=== PATIENT | female | born 1955 | race Caucasian/White ===

== ENCOUNTER 2022-02-18 17:07 | Observation (INO) ==
--- NOTE | 2022-02-18 17:29 | ED Triage Note ---
Date of Service February 18, 2022 History of Present Illness This patient was briefly evaluated while in triage. An abbreviated physical exam was performed. This patient is a 66-year-old Female with past medical history of GERD who presents to the ED for evaluation of several weeks of feeling tired, intermit tenly dizzy and lightheaded. She endorses multiple days of black stool, 3 days ago she had explosive vomiting of black liquid. Had an EGD 2 weeks ago and was told there was an infection. Had a blood transfusion several years ago due to low hemoglobin, was given iron. Physical Exam CONSTITUTIONAL: in no acute distress CARDIAC: normal rate and regular rhythm RESPIRATORY: lungs clear ABDOMEN: no focal tenderness Initial orders for labs and / or imaging were placed and patient was placed in the waiting area until a bed is available. Please see further documentation for the full ED course.
[2022-02-18] MEDS ORDERED: SODIUM CHLORIDE 0.9% 500 ML IV STA (17:31)
--- NOTE | 2022-02-18 17:40 | Emergency Department Note ---
Impression & Plan Anemia ADMIT ED Provider Note HPI: The patient is a 66-year-old female who presents the emergency department with multiple issues. Patient states over the past several weeks she has felt fairly constant dizziness. Patient states that she is also had some nausea, patient states that 2 days ago she had an episode of dark-colored emesis, states she also had a very dark stool. Patient states that this seemed to have resolved for the past 2 days but she did continue to feel the sensation of constant dizziness. Patient does tell me that she had an EGD performed about 3 weeks ago for an esophageal dilation, at that time she was started on antibiotic therapy for H. pylori infection. Patient states she only did 3 days of this and then stopped because she felt as if it was upsetting her stomach. On arrival here to the ED the patient is in no acute distress, she does not have any focal deficits, she is otherwise hemodynamically stable. She states that her PCP had concern for possible GI bleeding and therefore she was sent to the ER for further evaluation. Of note, patient is visiting family from out of town as she is from [facility]. ROS: -GI: Nausea, dark emesis, melena -Neuro: Dizziness x2 to 3 weeks *10 point review systems was conducted and is otherwise negative unless stated above *Outpatient medications and allergy history reviewed PE: General: Alert, NAD HEENT: Normocephalic, atraumatic Eyes: Extraocular eye movement is intact, no scleral erythema Pulmonary: Clear to auscultation bilaterally, no wheezing Cardio: Regular rate and rhythm GI: Abdomen is soft, moderate tenderness over the epigastrium to palpation wit hout guarding or rigidity : No suprapubic tenderness MSK: No evidence of trauma or malformation of the extremities, no edema Skin: No evidence of rash Neuro: Alert, no focal deficits Psychiatric: Cooperative cardiac monitor technician: - An order was placed for continuous cardiac monitoring - Patient was noted to be in sinus rhythm with rate of 90 EKG: Rate: 83 Rhythm: Normal sinus rhythm Intervals: Within normal limits ST changes: No ST elevation Time: 1836 Medical Decision Making: Patient presented to the emergency department with a chief complaint of generalized weakness, states she has had some dizziness that is been ongoing for the past several weeks, patient states over the past 2 days she has felt dizzy and had an episode of emesis that was dark in color as well as an episode of dark-colored stools. Patient admits to being treated for recent H. pylori infection but did not finish her course of antibiotics. On arrival to the ED the patient is hemodynamically stable, IV was established, lab work obtained, patient was given IV fluid bolus. Lab work shows a hemoglobin of 9.5, patient does show me on her phone that she had lab work done on 01/31 that showed hemoglobin of 11.5, no evidence of acute kidney injury, EKG shows normal sinus rhythm without ischemic changes, CT imaging of the abdomen pelvis was obtained that shows evidence of hiatal hernia but no acute surgical pathology. CT imaging of the head does not show any evidence of any acute intracranial pathology. On my reassessment the patient is resting comfortably, discussed the change in her hemoglobin in association with her dizziness, I do feel like this represents symptomatic anemia in the setting of a likely GI bleed. She is hemodynamically stable, I did discuss the case with on-call gastroenterology, Dr. Patel, who was in agreement for consultation and the patient will be admitted to the inpatient hospitalist service. Patient was admitted to the [facility] hospitalist service in stable condition for further care and GI consultation. She was placed on Protonix drip prior to admission. She remained hemodynamically stable without hematemesis or melena while in the ED. Diagnosis: 1. Symptomatic anemia 2. Hematemesis and melena by history Disposition: Admission Solitario Eastman DO Emergency Medicine Past Med/Surg History Social History Smoking Status: Never smoker Feels Safe at Home: Yes Allergies Allergies Allergy/AdvReac Type Severity Reaction Status Date / Time amoxicillin Allergy ITCHY Verified 02/18/22 22:26 Home Meds Home Medications Medication Instructions Recorded Confirmed aspirin 81 mg tablet,delayed 81 mg PO DAILY 02/18/22 02/18/22 release atorvastatin 40 mg tablet 40 mg PO HS 02/18/22 02/18/22 cholecalciferol (vitamin D3) 125 125 mcg PO DAILY 02/18/22 02/18/22 mcg (5,000 unit) tablet (Vitamin D3) clonazepam 0.5 mg tablet 0.5 mg PO DAILY PRN Spasms 02/18/22 02/18/22 docusate sodium 100 mg capsule 100 mg PO DAILY 02/18/22 02/18/22 (Colace) ferrous sulfate 325 mg (65 mg 0 mg PO DAILY 02/18/22 02/18/22 iron) tablet (iron) gabapentin 300 mg capsule 300 mg PO HS 02/18/22 02/18/22 lactobacillus combination no.4 3 0 mmu cells PO DAILY 02/18/22 02/18/22 billion cell capsule (Probiotic) loratadine 10 mg tablet 10 mg PO DAILY 02/18/22 02/18/22 meloxicam 15 mg tablet 15 mg PO DAILY 02/18/22 02/18/22 omeprazole 40 mg capsule,delayed 40 mg PO BID 02/18/22 02/18/22 release ropinirole 1 mg tablet 2 mg PO HS 02/18/22 02/18/22 vit C 250 mg-vit E 90 mg-zinc 40 2 tab PO DAILY 02/18/22 02/18/22 mg-copper 1 [id number] capsule (PreserVision AREDS-2) Results & Data (ED) Vital Signs Vital Signs - 24 hr 02/18/22 17:20 02/18/22 18:20 02/18/22 18:20 Temperature 36.6 C Temperature Source Temporal Artery Scan Pulse Rate 99 H Pulse Rate [Finger] 84 Pulse Rhythm [Finger] Regular Pulse Strength [Finger] Normal Respiratory Rate 20 18 Respiratory Effort / Characteristics Non-Labored Non-Labored Respiratory Depth Normal Normal Respiratory Pattern Regular Blood Pressure 124/66 Blood Pressure [Right Arm] 129/77 Blood Pressure Mean 85 Blood Pressure Mean [Right Arm] 94 Blood Pressure Position [Right Arm] Lying Pulse Oximetry 97 97 99 Oxygen Delivery Method Room Air Room Air Room Air Sepsis Recent Fever Within 48 Hours No Sepsis New/Unexplained Change in Mental Status N/A Sepsis Action Taken by Nursing No Action Required 02/18/22 18:20 02/18/22 19:48 02/18/22 21:58 Temperature Temperature Source Pulse Rate 85 Pulse Rate [Finger] 89 91 H Pulse Rhythm [Finger] Pulse Strength [Finger] Respiratory Rate 99 H 21 16 Respiratory Effort / Characteristics Respiratory Depth Respiratory Pattern Blood Pressure Blood Pressure [Right Arm] 123/79 126/74 Blood Pressure Mean Blood Pressure Mean [Right Arm] 93 91 Blood Pressure Position [Right Arm] Pulse Oximetry 99 97 98 Oxygen Delivery Method Room Air Room Air Room Air Sepsis Recent Fever Within 48 Hours Sepsis New/Unexplained Change in Mental Status Sepsis Action Taken by Nursing 02/18/22 22:39 Temperature Temperature Source Pulse Rate Pulse Rate [Finger] Pulse Rhythm [Finger] Pulse Strength [Finger] Respiratory Rate Respiratory Effort / Characteristics Respiratory Depth Respiratory Pattern Blood Pressure Blood Pressure [Right Arm] 121/72 Blood Pressure Mean Blood Pressure Mean [Right Arm] 88 Blood Pressure Position [Right Arm] Pulse Oximetry Oxygen Delivery Method Sepsis Recent Fever Within 48 Hours Sepsis New/Unexplained Change in Mental Status Sepsis Action Taken by Nursing Laboratory Data Result diagrams: 02/18/22 18:19 02/18/22 18:19 Lab Results 02/18/22 02/18/22 02/18/22 Range/Units 18:19 18:19 18:19 WBC 4.95 (4.8-10.8) K/ul RBC 3.54 L (3.93-5.22) M/uL Hgb 9.5 L (12.0-16.0) g/dl Hct 31.8 L (34.1-44.9) % MCV 89.8 (80.0-100.0) fL MCH 26.8 (25.0-34.0) pg MCHC 29.9 L (32.0-36.0) g/dL RDW Std Deviation 48.8 H (36.4-46.3) fL RDW Coeff of Jaden 14.9 H (11.5-14.5) % Plt Count 200 (130-400) K/uL MPV 9.5 (9.4-12.3) fL Immature Gran % (Auto) 0.2 % Neut % (Auto) 52.6 % Lymph % (Auto) 33.7 % [place] % (Auto) 11.1 % Eos % (Auto) 2.0 % Baso % (Auto) 0.4 % Neut # (Auto) 2.60 (1.4-6.5) K/uL Lymph # (Auto) 1.67 (1.2-3.4) K/uL [place] # (Auto) 0.55 (0.24-0.82) K/uL Eos # (Auto) 0.10 (0-0.50) K/uL Baso # (Auto) 0.02 (0-0.2) K/uL Immature Gran # (Auto) 0.01 (0.00-0.02) K/uL PT (9.0-12.0) Seconds INR (0.9-1.1) APTT (21.0-31.0) Seconds PTT Ratio Sodium 141 (136-145) mmol/L Potassium 3.7 (3.5-5.1) mmol/L Chloride 107 (98-107) mmol/L Carbon Dioxide 26 (21-32) mmol/L Anion Gap 8 (3-11) BUN 21 (6-23) mg/dl Creatinine 0.61 (0.6-1.2) mg/dl Est Cr Clr Drug Dosing 97.4 ml/min Est GFR ( Amer) 109.5 ml/min Est GFR (Non-Af Amer) 94.5 ml/min BUN/Creatinine Ratio 34.4 H (10-20) Glucose 89 (70-99(Fasting)) mg/dl Calcium 9.2 (8.5-10.1) mg/dl Magnesium 2.0 (1.7-2.4) mg/dl Total Bilirubin 0.3 (0.2-1.0) mg/dl AST 24 (13-39) U/L ALT 25 (7-52) U/L Alkaline Phosphatase 134 H (34-104) U/L Troponin I High Sens 2.7 (0-14) pg/ml Total Protein 6.2 (6.0-8.3) gm/dl Albumin 3.8 (3.4-5.0) gm/dl Globulin 2.4 L (2.5-4.0) gm/dl Albumin/Globulin Ratio 1.6 (0.9-2) Lipase 41 (11-82) U/L SARS-CoV-2, RNA, NAAT (NEGATIVE) Blood Type A Positive Antibody Screen NEGATIVE 02/18/22 02/18/22 Range/Units 18:19 21:56 WBC (4.8-10.8) K/ul RBC (3.93-5.22) M/uL Hgb (12.0-16.0) g/dl Hct (34.1-44.9) % MCV (80.0-100.0) fL MCH (25.0-34.0) pg MCHC (32.0-36.0) g/dL RDW Std Deviation (36.4-46.3) fL RDW Coeff of Jaden (11.5-14.5) % Plt Count (130-400) K/uL MPV (9.4-12.3) fL Immature Gran % (Auto) % Neut % (Auto) % Lymph % (Auto) % [place] % (Auto) % Eos % (Auto) % Baso % (Auto) % Neut # (Auto) (1.4-6.5) K/uL Lymph # (Auto) (1.2-3.4) K/uL [place] # (Auto) (0.24-0.82) K/uL Eos # (Auto) (0-0.50) K/uL Baso # (Auto) (0-0.2) K/uL Immature Gran # (Auto) (0.00-0.02) K/uL PT 10.4 (9.0-12.0) Seconds INR 1.0 (0.9-1.1) APTT 24.9 (21.0-31.0) Seconds PTT Ratio 0.9 Sodium (136-145) mmol/L Potassium (3.5-5.1) mmol/L Chloride (98-107) mmol/L Carbon Dioxide (21-32) mmol/L Anion Gap (3-11) BUN (6-23) mg/dl Creatinine (0.6-1.2) mg/dl Est Cr Clr Drug Dosing ml/min Est GFR ( Amer) ml/min Est GFR (Non-Af Amer) ml/min BUN/Creatinine Ratio (10-20) Glucose (70-99(Fasting)) mg/dl Calcium (8.5-10.1) mg/dl Magnesium (1.7-2.4) mg/dl Total Bilirubin (0.2-1.0) mg/dl AST (13-39) U/L ALT (7-52) U/L Alkaline Phosphatase (34-104) U/L Troponin I High Sens (0-14) pg/ml Total Protein (6.0-8.3) gm/dl Albumin (3.4-5.0) gm/dl Globulin (2.5-4.0) gm/dl Albumin/Globulin Ratio (0.9-2) Lipase (11-82) U/L SARS-CoV-2, RNA, NAAT NEGATIVE (NEGATIVE) Blood Type Antibody Screen Administered Medications Pantoprazole Sodium 40 mg/ (Dextrose) 100 mls @ 20 mls/hr IV Q5H FERNANDO Stop: 03/20/22 21:44 Last Admin: 08/15/22 22:36 Dose: 8 mg/hr, 20 mls/hr Documented By: ASW Discontinued Medications Sodium Chloride (Nss) 500 mls @ 999 mls/hr IV .Q31M STA Stop: 02/18/22 18:01 Last Infusion: 02/18/22 18:40 Dose: 0 mls/hr Documented By: Admin: 02/18/22 18:13 Dose: 999 mls/hr Documented By: PRACHI Pantoprazole Sodium (Protonix Bolus/Drip) 0 mls @ 1 mls/hr IV ONE STA Stop: 02/18/22 21:21 Last Admin: 02/18/22 22:36 Dose: Not Given Documented By: PHAM Pantoprazole Sodium 80 mg/ (Dextrose) 120 mls @ 400 mls/hr IV NOW ONE Stop: 02/18/22 21:37 Last Infusion: 02/18/22 23:05 Dose: 0 mls/hr Documented By: Admin: 02/18/22 22:36 Dose: 400 mls/hr Documented By: PHAM Ioversol (Optiray 300 100ml) 87 ml IV ONCE ONE Stop: 02/18/22 20:07 Last Admin: 02/18/22 20:07 Dose: 87 ml Documented By: JENNIFER Imaging Data Radiologist's Impression: Chest X-Ray 02/18/22 17:31 XR chest 1V portable CLINICAL HISTORY: Atypical chest pain. COMPARISON STUDY: No previous studies for comparison. FINDINGS: Lung volumes are normal. Lungs are clear. There is no pneumothorax or pleural effusion. Mild cardiomegaly is noted. A moderate sized hiatal hernia is noted. There is no evidence for pulmonary edema. IMPRESSION: 1. No acute cardiopulmonary findings. 2. Moderate-sized hiatal hernia. ACT 112: Negative or not required by law. Electronically signed by: Nick Braun M.D. 02/18/2022 6:05 PM Abdomen/Pelvis CT 02/18/22 17:[address] WITH IV CONTRAST CT DOSE: 801.96 mGy.cm HISTORY: Nausea. Vomiting., dark stools TECHNIQUE: Multiaxial CT images of the abdomen and pelvis were performed following the use of intravenous contrast. A dose lowering technique was ut ilized adhering to the principles of ALARA. COMPARISON STUDY: None. FINDINGS: The lung bases are essentially clear. No pneumoperitoneum. No pneumato sis. Mild levoscoliosis and degenerative changes within the lumbar spine. No fractures identified. There is a large hiatus hernia containing the majority the stomach. Small fat-containing bilateral inguinal hernias are noted. Mild pelvic floor collapse. The bladder, uterus, bilateral adnexa are unremarkable. No pelvic free fluid. A few scattered hypodense lesions within the liver measuring up to 2 cm. These likely represent cysts. The main portal vein is patent. The spleen, adrenal glands, pancreas, and kidneys are unremarkable. No hydronephrosis. There appears to be a punctate stone within the gallbladder neck. This is best seen image 127. No gallbladder wall thickening. Normal caliber abdominal aorta. No retroperitoneal lymphadenopathy. Colonic diverticulosis. No evidence for acute diverticulitis. No bowel wall thickening or obstruction. Normal appendix. IMPRESSION: 1. No bowel wall thickening or obstruction. 2. Normal appendix. 3. Cholelithiasis. No gallbladder wall thickening. 4. Colonic diverticulosis. No evidence for acute diverticulitis. 5. Large hiatus hernia. 6. Additional findings as described above. ACT 112: Negative or not required by law. Electronically signed by: Steve Reed M.D. 02/18/2022 8:[address] 02/18/22 17:[address] DOSE: 537.48 mGy.cm HISTORY: Dizziness. TECHNIQUE: Multiaxial CT images of the head were performed without the use of intravenous contrast. Automated exposure control was utilized for this study. A dose lowering technique was utilized adhering to the principles of ALARA. Comparison: None. Findings: The paranasal sinuses and mastoid air cells are clear. The calvarium and skull base are intact. The ventricles and sulci are within normal limits. There is no mass, hematoma, midline shift, or acute infarct. Impression: No acute intracranial abnormality. ACT 112: Negative or not required by law. Electronically signed by: Steve Reed M.D. 02/18/2022 8:14 PM Discharge Plan Visit Data Chief Complaint: Dizziness Stated Complaint: REF BY , DIZZINESS, NAUSEA, VOMITING ED Provider: Solitario Eastman Discharge Problem: Anemia Patient Disposition: Admitted As Inpatient Forms Stand Alone Forms: [facility] Prescriptions Prescriptions: No Action atorvastatin 40 mg tablet 40 mg PO HS ropinirole 1 mg tablet 2 mg PO HS meloxicam 15 mg tablet 15 mg PO DAILY clonazepam 0.5 mg tablet 0.5 mg PO DAILY PRN (Reason: Spasms) omeprazole 40 mg capsule,delayed release(DR/EC) 40 mg PO BID aspirin [Aspir-Low] 81 mg Tablet,Delayed Release (Dr/Ec) 81 mg PO DAILY ferrous sulfate [iron] 325 mg (65 mg iron) Tablet 0 mg PO DAILY docusate sodium [Colace] 100 mg Capsule 100 mg PO DAILY gabapentin 300 mg capsule 300 mg PO HS loratadine 10 mg Tablet 10 mg PO DAILY cholecalciferol (vitamin D3) [Vitamin D3] 125 mcg (5,000 unit) Tablet 125 mcg PO DAILY Probiotic 3 billion cell Capsule 0 mmu cells PO DAILY Rx Instructions: administer with a meal PreserVision AREDS-2 250-90-40-1 mg Capsule 2 tab PO DAILY Referrals Referrals: PCP,NO [Primary Care Provider] -
--- NOTE | 2022-02-18 18:06 | XRay Report ---
XR chest 1V portable CLINICAL HISTORY: Atypical chest pain. COMPARISON STUDY: No previous studies for comparison. FINDINGS: Lung volumes are normal. Lungs are clear. There is no pneumothorax or pleural effusion. Mil d cardiomegaly is noted. A moderate sized hiatal hernia is noted. There is no evidence for pulmonary edema. IMPRESSION: 1. No acute cardiopulmonary findings. 2. Moderate-sized hiatal hernia. ACT 112: Negative or not required by law. Electronically signed by: Nick Braun M.D. 02/18/2022 6:05 PM
[2022-02-18 18:53] LABS: Partial Thromboplastin Ratio 0.9; Partial Thromboplastin Time 24.9 Seconds (21.0-31.0); Prothrombin Time 10.4 Seconds (9.0-12.0)
[2022-02-18 18:58] LABS: Basophils # (auto) 0.02 K/uL (0-0.2); Basophils % (auto) 0.4 %; Hematocrit (blood only) 31.8 % (34.1-44.9); Hemoglobin 9.5 g/dl (12.0-16.0); Immature Granulocytes # (auto) 0.01 K/uL (0.00-0.02); Immature Granulocytes % (auto) 0.2 %; Lymphocytes # (auto) 1.67 K/uL (1.2-3.4); Lymphocytes % (auto) 33.7 %; Mean Corpuscular Hemoglobin 26.8 pg (25.0-34.0); Mean Corpuscular Hgb Conc 29.9 g/dL (32.0-36.0); Mean Corpuscular Volume 89.8 fL (80.0-100.0); Mean Platelet Volume 9.5 fL (9.4-12.3); Monocytes # (auto) 0.55 K/uL (0.24-0.82); Monocytes % (auto) 11.1 %; Neutrophils % (auto) 52.6 %; Platelet Count 200 K/uL (130-400); RDW Coefficient of Variation 14.9 % (11.5-14.5); RDW Standard Deviation 48.8 fL (36.4-46.3); Red Blood Count 3.54 M/uL (3.93-5.22); White Blood Count 4.95 K/ul (4.8-10.8)
[2022-02-18 19:49] LABS: Albumin Globulin Ratio 1.6 (0.9-2); Albumin Level 3.8 gm/dl (3.4-5.0); BUN Creatinine Ratio 34.4 (10-20); Bilirubin,Total 0.3 mg/dl (0.2-1.0); Calcium 9.2 mg/dl (8.5-10.1); Creatinine Clr Calc Pharmacy 97.4 ml/min; Est GFR (African American) 109.5 ml/min; Est GFR (Non-African American) 94.5 ml/min; Globulin 2.4 gm/dl (2.5-4.0); Potassium 3.7 mmol/L (3.5-5.1); Total Protein 6.2 gm/dl (6.0-8.3)
[2022-02-18] MEDS ORDERED: OPTIRAY 300 100mL IV ONE (20:06)
[2022-02-18 20:08] LABS: Troponin I High Sensitivity 2.7 pg/ml (0-14)
--- NOTE | 2022-02-18 20:16 | CT Scan Report ---
HEAD CT NONCONTRAST CT DOSE: 537.48 mGy.cm HISTORY: Dizziness. TECHNIQUE: Multiaxial CT images of the head were performed without the use of intravenous contrast. A utomated exposure control was utilized for this study. A dose lowering technique was utilized adheri ng to the principles of ALARA. Comparison: None. Findings: The paranasal sinuses and mastoid air cells are clear. The calvarium and skull base are int act. The ventricles and sulci are within normal limits. There is no mass, hematoma, midline shift, or acute infarct. Impression: No acute intracranial abnormality. ACT 112: Negative or not required by law. Electronically signed by: Steve Reed M.D. 02/18/2022 8:14 PM
--- NOTE | 2022-02-18 20:23 | CT Scan Report ---
ABDOMEN AND PELVIS CT WITH IV CONTRAST CT DOSE: 801.96 mGy.cm HISTORY: Nausea. Vomiting., dark stools TECHNIQUE: Multiaxial CT images of the abdomen and pelvis were performed following the use of intrave nous contrast. A dose lowering technique was utilized adhering to the principles of ALARA. COMPARISON STUDY: None. FINDINGS: The lung bases are essentially clear. No pneumoperitoneum. No pneumatosis. Mild levoscolios is and degenerative changes within the lumbar spine. No fractures identified. There is a large hiatus hernia containing the majority the stomach. Small fat-containing bilateral inguinal hernias are note d. Mild pelvic floor collapse. The bladder, uterus, bilateral adnexa are unremarkable. No pelvic free fluid. A few scattered hypodense lesions within the liver measuring up to 2 cm. These likely represe nt cysts. The main portal vein is patent. The spleen, adrenal glands, pancreas, and kidneys are unrem arkable. No hydronephrosis. There appears to be a punctate stone within the gallbladder neck. This is best seen image 127. No gallbladder wall thickening. Normal caliber abdominal aorta. No retroperiton eal lymphadenopathy. Colonic diverticulosis. No evidence for acute diverticulitis. No bowel wall thic kening or obstruction. Normal appendix. IMPRESSION: 1. No bowel wall thickening or obstruction. 2. Normal appendix. 3. Cholelithiasis. No gallbladder wall thickening. 4. Colonic diverticulosis. No evidence for acute diverticulitis. 5. Large hiatus hernia. 6. Additional findings as described above. ACT 112: Negative or not required by law. Electronically signed by: Steve Reed M.D. 02/18/2022 8:20 PM
[2022-02-18] MEDS ORDERED: PANTOprazole 80 MG in DEXTROSE 5% 100 ML IV ONE (21:20)
[2022-02-18] MEDS ORDERED: PANTOPRAZOLE BOLUS/DRIP 1 EACH IV STA (21:20)
[2022-02-18] MEDS: PANTOprazole 40 MG in DEXTROSE 5% 100 ML IV SCH (22:36)
--- NOTE | 2022-02-18 22:48 | History & Physical Report ---
Date of Service February 18, 2022 Assessment & Plan (1) UGIB (upper gastrointestinal bleed): Plan: hx GERD/stomach ulcers as per patient Concurrent aspirin, Excedrin, intermittent ibuprofen intake for chronic osteoarthritis pain Considerations include NSAID gastritis, PUD Acute on chronic anemia secondary to above hyperlipidemia on statin Rx Medical therapy IV PPI Patient counseled regarding adverse effects of NSAIDs on gastric mucosa. GI consult Re: UGI B N.p.o. until patient seen by GI in a.m. in anticipation of procedure (ER provider already in touch with Dr. Patel.) Follow H&H, transfuse PRBC if hemoglobin less than 8 and or for symptomatic anemia (hx TIA) DVT prophylaxis. SCDs Re: GI bleed Full code Patient daughter requesting updates providers. Ms. Alice Garcia, contact #[phone]. Text document was generated using [employer] voice recognition software. It may contain grammatical or spelling errors. Kindly contact undersigned for clarification of any documentation item in question. History of Present Illness Chief Complaint: Melena Primary Care Provider: PCP : Dr. Deanne Nunn from [place], [place] GI specialist Dr. Betty Orona from [place], [place] History obtained from patient, family, and records. Medical history significant for TIA, hyperlipidemia, RLS, GERD, osteoarthritis/degenerative disc disease, chronic anemia (baseline hemoglobin of 11) Patient is a resident of [place], [place] who is currently in town visiting family. 1 month history of dizziness symptoms described as lightheadedness. Some nausea without abdominal pain complaints. 2 days ago, patient had coffee-ground emesis along with melena. No chest pain, no SOB, belly pain. No unusual weight loss. Patient admits to taking daily Excedrin intake for body aches and as needed ibuprofen. Last EGD was in December, by GI specialist from [place], [place]. Patient had scheduled stretching of her esophagus. She was told that she had small stomach ulcers and hiatal hernia as well. Amoxicillin course prescribed for a stomach bacterial infection. Medication later discontinued after an allergic reaction. Patient brought to ER by daughter for evaluation. IV PPI administered at the ER. Medical History as above Surgical History : Knee surgeries, shoulder surgery, BTL, carpal tunnel surgery, breast lumpectomy/biopsy Family History : Heart disease Personal/Social history : Non-smoker, no EtOH intake, retired medical technologist blood bank Allergies Allergy/AdvReac Type Severity Reaction Status Date / Time amoxicillin Allergy ITCHY Verified 02/18/22 22:26 Home Medications Medication Instructions Recorded Confirmed Type aspirin 81 mg tablet,delayed 81 mg PO DAILY 02/18/22 02/18/22 History release atorvastatin 40 mg tablet 40 mg PO HS 02/18/22 02/18/22 History cholecalciferol (vitamin D3) 125 125 mcg PO DAILY 02/18/22 02/18/22 History mcg (5,000 unit) tablet (Vitamin D3) clonazepam 0.5 mg tablet 0.5 mg PO DAILY PRN Spasms 02/18/22 02/18/22 History docusate sodium 100 mg capsule 100 mg PO DAILY 02/18/22 02/18/22 History (Colace) ferrous sulfate 325 mg (65 mg 0 mg PO DAILY 02/18/22 02/18/22 History iron) tablet (iron) gabapentin 300 mg capsule 300 mg PO HS 02/18/22 02/18/22 History lactobacillus combination no.4 3 0 mmu cells PO DAILY 02/18/22 02/18/22 History billion cell capsule (Probiotic) loratadine 10 mg tablet 10 mg PO DAILY 02/18/22 02/18/22 History meloxicam 15 mg tablet 15 mg PO DAILY 02/18/22 02/18/22 History omeprazole 40 mg capsule,delayed 40 mg PO BID 02/18/22 02/18/22 History release ropinirole 1 mg tablet 2 mg PO HS 02/18/22 02/18/22 History vit C 250 mg-vit E 90 mg-zinc 40 2 tab PO DAILY 02/18/22 02/18/22 History mg-copper 1 [id number] capsule (PreserVision AREDS-2) Past Med/Surg History Social History Smoking Status: Never smoker Hx Alcohol Use: No Hx Substance Use: No Preferred Language: Slovenian Communication Ability: Effective Child Protective Services Specialist Required: No Beliefs That Will Affect Care: None Current Living Situation: Spouse Feels Safe at Home: Yes Safety Concerns: Feels Safe At This Time Review of Systems Review of Systems: As per HPI, all other systems reviewed and negative Physical Exam Physical Exam: GENERAL: Comfortable, obese, pleasant, no respiratory distress SKIN: Pallor , warm HEENT: Pale palpebral conjunctivae, no ptosis, moist buccal mucosa NECK : Supple, short neck, no tenderness CHEST : CTA, no tenderness HEART : RRR, no obvious murmurs ABDOMEN: Some distention, nontender EXTREMITIES : Minimal LE swelling, no LE tenderness, no other conspicuous deformities noted NEUROLOGIC : Coherent, no facial asymmetry, no other gross focality Results & Data Results & [facility] ([facility] Vital Signs (Past 12 Hours) Vital Signs Temp Pulse Pulse Resp BP BP Pulse Ox 02/18/22 22:39 121/72 02/18/22 21:58 91 H 16 126/74 98 02/18/22 19:48 89 21 123/79 97 02/18/22 18:20 85 99 H 99 02/18/22 18:20 84 18 129/77 99 02/18/22 18:20 97 02/18/22 17:20 36.6 C 99 H 20 124/66 97 O2 Del Method 02/18/22 22:39 02/18/22 21:58 Room Air 02/18/22 19:48 Room Air 02/18/22 18:20 Room Air 02/18/22 18:20 Room Air 02/18/22 18:20 Room Air 02/18/22 17:20 Room Air Laboratory Results Laboratory Results WBC 4.95 K/ul (4.8-10.8) 02/18/22 18:19 RBC 3.54 M/uL (3.93-5.22) L 02/18/22 18:19 Hgb 9.5 g/dl (12.0-16.0) L 02/18/22 18:19 Hct 31.8 % (34.1-44.9) L 02/18/22 18:19 MCV 89.8 fL (80.0-100.0) 02/18/22 18:19 MCH 26.8 pg (25.0-34.0) 02/18/22 18:19 MCHC 29.9 g/dL (32.0-36.0) L 02/18/22 18:19 RDW Std Deviation 48.8 fL (36.4-46.3) H 02/18/22 18:19 RDW Coeff of Jaden 14.9 % (11.5-14.5) H 02/18/22 18:19 Plt Count 200 K/uL (130-400) 02/18/22 18:19 MPV 9.5 fL (9.4-12.3) 02/18/22 18:19 Immature Gran % (Auto) 0.2 % 02/18/22 18:19 Neut % (Auto) 52.6 % 02/18/22 18:19 Lymph % (Auto) 33.7 % 02/18/22 18:19 [place] % (Auto) 11.1 % 02/18/22 18:19 Eos % (Auto) 2.0 % 02/18/22 18:19 Baso % (Auto) 0.4 % 02/18/22 18:19 Neut # (Auto) 2.60 K/uL (1.4-6.5) 02/18/22 18:19 Lymph # (Auto) 1.67 K/uL (1.2-3.4) 02/18/22 18:19 [place] # (Auto) 0.55 K/uL (0.24-0.82) 02/18/22 18:19 Eos # (Auto) 0.10 K/uL (0-0.50) 02/18/22 18:19 Baso # (Auto) 0.02 K/uL (0-0.2) 02/18/22 18:19 Immature Gran # (Auto) 0.01 K/uL (0.00-0.02) 02/18/22 18:19 PT 10.4 Seconds (9.0-12.0) 02/18/22 18:19 INR 1.0 (0.9-1.1) 02/18/22 18:19 APTT 24.9 Seconds (21.0-31.0) 02/18/22 18:19 PTT Ratio 0.9 02/18/22 18:19 Sodium 141 mmol/L (136-145) 02/18/22 18:19 Potassium 3.7 mmol/L (3.5-5.1) 02/18/22 18:19 Chloride 107 mmol/L (98-107) 02/18/22 18:19 Carbon Dioxide 26 mmol/L (21-32) 02/18/22 18:19 Anion Gap 8 (3-11) 02/18/22 18:19 BUN 21 mg/dl (6-23) 02/18/22 18:19 Creatinine 0.61 mg/dl (0.6-1.2) 02/18/22 18:19 Est Cr Clr Drug Dosing 97.4 ml/min 02/18/22 18:19 Est GFR ( Amer) 109.5 ml/min 02/18/22 18:19 Est GFR (Non-Af Amer) 94.5 ml/min 02/18/22 18:19 BUN/Creatinine Ratio 34.4 (10-20) H 02/18/22 18:19 Glucose 89 mg/dl (70-99(Fasting)) 02/18/22 18:19 Calcium 9.2 mg/dl (8.5-10.1) 02/18/22 18:19 Magnesium 2.0 mg/dl (1.7-2.4) 02/18/22 18:19 Total Bilirubin 0.3 mg/dl (0.2-1.0) 02/18/22 18:19 AST 24 U/L (13-39) 02/18/22 18:19 ALT 25 U/L (7-52) 02/18/22 18:19 Alkaline Phosphatase 134 U/L (34-104) H 02/18/22 18:19 Troponin I High Sens 2.7 pg/ml (0-14) 02/18/22 18:19 Total Protein 6.2 gm/dl (6.0-8.3) 02/18/22 18:19 Albumin 3.8 gm/dl (3.4-5.0) 02/18/22 18:19 Globulin 2.4 gm/dl (2.5-4.0) L 02/18/22 18:19 Albumin/Globulin Ratio 1.6 (0.9-2) 02/18/22 18:19 Lipase 41 U/L (11-82) 02/18/22 18:19 SARS-CoV-2, RNA, NAAT NEGATIVE (NEGATIVE) 02/18/22 21:56 Blood Type A Positive 02/18/22 18:19 Antibody Screen NEGATIVE 02/18/22 18:19 Impressions Chest X-Ray 02/18/22 17:31 XR chest 1V portable CLINICAL HISTORY: Atypical chest pain. COMPARISON STUDY: No previous studies for comparison. FINDINGS: Lung volumes are normal. Lungs are clear. There is no pneumothorax or pleural effusion. Mild cardiomegaly is noted. A moderate sized hiatal hernia is noted. There is no evidence for pulmonary edema. IMPRESSION: 1. No acute cardiopulmonary findings. 2. Moderate-sized hiatal hernia. ACT 112: Negative or not required by law. Electronically signed by: Nick Braun M.D. 02/18/2022 6:05 PM Abdomen/Pelvis CT 02/18/22 17:[address] WITH IV CONTRAST CT DOSE: 801.96 mGy.cm HISTORY: Nausea. Vomiting., dark stools TECHNIQUE: Multiaxial CT images of the abdomen and pelvis were performed following the use of intravenous contrast. A dose lowering technique was utilized adhering to the principles of ALARA. COMPARISON STUDY: None. FINDINGS: The lung bases are essentially clear. No pneumoperitoneum. No pneumatosis. Mild levoscoliosis and degenerative changes within the lumbar spine. No fractures identified. There is a large hiatus hernia containing the majority the stomach. Small fat-containing bilateral inguinal hernias are noted. Mild pelvic floor collapse. The bladder, uterus, bilateral adnexa are unremarkable. No pelvic free fluid. A few scattered hypodense lesions within the liver measuring up to 2 cm. These likely represent cysts. The main portal vein is patent. The spleen, adrenal glands, pancreas, and kidneys are unremarkable. No hydronephrosis. There appears to be a punctate stone within the gallbladder neck. This is best seen image 127. No gallbladder wall thickening. Normal caliber abdominal aorta. No retroperitoneal lymphadenopathy. Colonic diverticulosis. No evidence for acute diverticulitis. No bowel wall thickening or obstruction. Normal appendix. IMPRESSION: 1. No bowel wall thickening or obstruction. 2. Normal appendix. 3. Cholelithiasis. No gallbladder wall thickening. 4. Colonic diverticulosis. No evidence for acute diverticulitis. 5. Large hiatus hernia. 6. Additional findings as described above. ACT 112: Negative or not required by law. Electronically signed by: Steve Reed M.D. 02/18/2022 8:[address] 02/18/22 17:[address] DOSE: 537.48 mGy.cm HISTORY: Dizziness. TECHNIQUE: Multiaxial CT images of the head were performed without the use of intravenous contrast. Automated exposure control was utilized for this study. A dose lowering technique was utilized adhering to the principles of ALARA. Comparison: None. Findings: The paranasal sinuses and mastoid air cells are clear. The calvarium and skull base are intact. The ventricles and sulci are within normal limits. There is no mass, hematoma, midline shift, or acute infarct. Impression: No acute intracranial abnormality. ACT 112: Negative or not required by law. Electronically signed by: Steve Reed M.D. 02/18/2022 8:14 PM Diagnostic Findings EKG as per my interpretation :Rate 85, NSR, normal axis, incomplete RBBB, T wave flattening inferior and septal leads
[2022-02-18] MEDS ORDERED: rOPINIRole HCL 2 MG TABLET PO STA (22:54)
[2022-02-18] MEDS ORDERED: GABAPENTIN 300 MG CAP PO STA (22:54)
[2022-02-18] MEDS ORDERED: traMADol HCL 50 MG TABLET PO PRN (23:32)
[2022-02-18] MEDS ORDERED: ACETAMINOPHEN 325 MG TAB PO PRN (23:32)
[2022-02-18] MEDS ORDERED: PROMETHAZINE HCL 12.5 MG in SODIUM CHLORIDE 0.9% 50 ML IV PRN (23:32)
[2022-02-18 23:56] LABS: Hematocrit (blood only) 32.5 % (34.1-44.9); Hemoglobin 9.7 g/dl (12.0-16.0)
[2022-02-19] MEDS ORDERED: D5W AND LACTATED RINGERS 1,000 ML IV SCH
[2022-02-19] MEDS: PANTOprazole 40 MG in DEXTROSE 5% 100 ML IV SCH ×2 (03:12→11:34)
[2022-02-19 06:11] LABS: Basophils # (auto) 0.03 K/uL (0-0.2); Basophils % (auto) 0.7 %; Eosinophils # (auto) 0.13 K/uL (0-0.50); Eosinophils % (auto) 2.9 %; Hematocrit (blood only) 29.1 % (34.1-44.9); Hemoglobin 8.9 g/dl (12.0-16.0); Immature Granulocytes # (auto) 0.01 K/uL (0.00-0.02); Immature Granulocytes % (auto) 0.2 %; Lymphocytes # (auto) 1.44 K/uL (1.2-3.4); Lymphocytes % (auto) 31.9 %; Mean Corpuscular Hemoglobin 27.2 pg (25.0-34.0); Mean Corpuscular Hgb Conc 30.6 g/dL (32.0-36.0); Mean Platelet Volume 9.4 fL (9.4-12.3); Monocytes # (auto) 0.48 K/uL (0.24-0.82); Monocytes % (auto) 10.6 %; Neutrophils # (auto) 2.43 K/uL (1.4-6.5); Neutrophils % (auto) 53.7 %; Platelet Count 183 K/uL (130-400); RDW Coefficient of Variation 15.3 % (11.5-14.5); RDW Standard Deviation 49.1 fL (36.4-46.3); Red Blood Count 3.27 M/uL (3.93-5.22); White Blood Count 4.52 K/ul (4.8-10.8)
[2022-02-19 06:43] LABS: BUN Creatinine Ratio 25.4 (10-20); Creatinine Clr Calc Pharmacy 88.6 ml/min; Est GFR (African American) 106.2 ml/min; Est GFR (Non-African American) 91.6 ml/min; Potassium 4.1 mmol/L (3.5-5.1)
[2022-02-19] MEDS ORDERED: LORATADINE 10 MG TAB PO SCH (09:00)
[2022-02-19] MEDS ORDERED: ADVANCED PROBIOTIC 1250 MG CAPSULE PO SCH (09:00)
--- NOTE | 2022-02-19 09:21 | Anesthesiology Consultation ---
Date of Service February 19, 2022 Assessment & Plan (1) Encounter for pre-operative examination: Chart Review Chart Review: Acceptable Risk for Surgery, Patient NOT seen in Pre Admission Testing and entry level programmer initiated Consults Requested none Proposed Anesthesia Anesthesia Type: MAC Risk / Benefits Reviewed With: PT / POA / Parent / Guardian, Accepts Plan and Informed Consent Obtained History Surgery Operation Date: 02/19/22 17:15 Proposed Procedures p Esophagogastroduodenoscopy Dr Patel - Jorge Martinez Case, DO Height/Weight Height: 5 ft 4 in Weight: 87.9 kg Allergies Allergy/AdvReac Type Severity Reaction Status Date / Time amoxicillin Allergy ITCHY Verified 02/18/22 22:26 Medications Home Medications Medication Instructions Recorded Confirmed Last Taken aspirin 81 mg tablet,delayed 81 mg PO DAILY 02/18/22 02/18/22 Unknown release atorvastatin 40 mg tablet 40 mg PO HS 02/18/22 02/18/22 Unknown cholecalciferol (vitamin D3) 125 125 mcg PO DAILY 02/18/22 02/18/22 Unknown mcg (5,000 unit) tablet (Vitamin D3) clonazepam 0.5 mg tablet 0.5 mg PO DAILY PRN Spasms 02/18/22 02/18/22 Unknown docusate sodium 100 mg capsule 100 mg PO DAILY 02/18/22 02/18/22 Unknown (Colace) ferrous sulfate 325 mg (65 mg 0 mg PO DAILY 02/18/22 02/18/22 Unknown iron) tablet (iron) gabapentin 300 mg capsule 300 mg PO HS 02/18/22 02/18/22 Unknown lactobacillus combination no.4 3 0 mmu cells PO DAILY 02/18/22 02/18/22 Unknown billion cell capsule (Probiotic) loratadine 10 mg tablet 10 mg PO DAILY 02/18/22 02/18/22 Unknown meloxicam 15 mg tablet 15 mg PO DAILY 02/18/22 02/18/22 Unknown omeprazole 40 mg capsule,delayed 40 mg PO BID 02/18/22 02/18/22 Unknown release ropinirole 1 mg tablet 2 mg PO HS 02/18/22 02/18/22 Unknown vit C 250 mg-vit E 90 mg-zinc 40 2 tab PO DAILY 02/18/22 02/18/22 Unknown mg-copper 1 [id number] capsule (PreserVision AREDS-2) Active Medications Generic Name Dose Route Start Last Admin Trade Name Ubaldo PRN Reason Stop Dose Admin Pantoprazole Sodium 40 mg/ 100 mls @ 20 mls/hr 02/18/22 21:45 02/19/22 08:49 Dextrose IV 03/20/22 21:44 Infused Q5H FERNANDO Infusion 8 MG/HR Dextrose/Lactated Ringer's 1,000 mls @ 40 mls/hr 02/19/22 00:00 02/19/22 01:12 D5w And Lactated Ringers IV 03/21/22 00:00 40 mls/hr .Q24H FERNANDO Administration Past Medical History Medical History (Updated 02/19/22 @ 09:23 by Carlos Panda MD) Encounter for pre-operative examination Social History Smoking Status: Never smoker Hx Alcohol Use: No Hx Substance Use: No Physical Exam Vital Signs Last Vital Signs Temp 36.9 C 02/18/22 23:41 Pulse 80 02/19/22 08:02 Resp 16 02/19/22 08:02 BP 115/71 02/19/22 08:02 Pulse Ox 97 02/19/22 08:02 O2 Del Method 02/19/22 08:02 Testing Laboratory Results 02/19/22 05:28 02/19/22 05:28 PT 10.4 Seconds (9.0-12.0) 02/18/22 18:19 INR 1.0 (0.9-1.1) 02/18/22 18:19 APTT 24.9 Seconds (21.0-31.0) 02/18/22 18:19 Blood Type A Positive 02/18/22 18:19 Antibody Screen NEGATIVE 02/18/22 18:19 Electrocardiogram Date: 02/18/22 Normal sinus rhythm Possible Inferior infarct , age undetermined Cannot rule out Anterior infarct , age undetermined Abnormal ECG No previous ECGs available Chest X-Ray Date: 02/18/22 CLINICAL HISTORY: Atypical chest pain. COMPARISON STUDY: No previous studies for comparison. FINDINGS: Lung volumes are normal. Lungs are clear. There is no pneumothorax or pleural effusion. Mild cardiomegaly is noted. A moderate sized hiatal hernia is noted. There is no evidence for pulmonary edema. IMPRESSION: 1. No acute cardiopulmonary findings. 2. Moderate-sized hiatal hernia.
[2022-02-19] MEDS ORDERED: LIDOCAINE 2% MPF LOCAL 5 ML VIAL INFIL ONE (10:05)
[2022-02-19] MEDS ORDERED: PROPOFOL IV EMULSION 10 MG/ML 20 ML VIAL IV ONE (10:05)
--- NOTE | 2022-02-19 10:14 | Gastrointestinal Consultation ---
Date of Consultation February 19, 2022 Assessment & Plan (1) UGIB (upper gastrointestinal bleed): (2) Anemia: Plan -Keep NPO & proceed with EGD today -Continue IV PPI at present; will make further recommendations pending results of EGD -Continue to monitor H/H Supervising Physician Co-Signing Physician Notes Agree with SAROJ Kuo as above Gen: A+OX3, Cooperative, NAD Chest: CTA B/L, -W/R/R CVS: RRR Abd: Soft, NT, ND, +BS Ext: -C/C/E Continue current therapy Proceed with EGD now History of Present Illness Reason for Consultation: Anemia, GI bleeding Attending Physician: Chele Perez MD History of Present Illness Patient is a 66 yo female with PMH of TIA, hyperlipidemia, RLS,GERD, osteoarthritis/degenerative disc disease, chronic anemia (baseline hemoglobin of 11) who presented to [facility] for evaluation of ongoing dizziness, nausea, & abdominal pain. The patient is visiting family locally but typically lives in [facility]. She notes that she had been having ongoing nausea, dizziness, but 3 days ago, she developed coffee-ground emesis with melena as well. She denies abdominal pain, chest pain, SOB. She denies unintentional weight loss. She denies changes to her bowel habits. She had an EGD with her home-GI in December 2021 for a dilatation, but during that time she was diagnosed what sounds like H Pylori based on her description of being prescribed Amoxicillin. She notes she had an allergic reaction to the Amoxicillin and was instructed to stop her medication. She reports NSAID use. She reportedly has had stomach ulcers and a hiatal hernia. She is on IV Protonix at present. H/H 8.9/29.1. Allergies Allergy/AdvReac Type Severity Reaction Status Date / Time amoxicillin Allergy ITCHY Verified 02/19/22 09:32 Home Medications Medication Instructions Recorded Confirmed Type aspirin 81 mg tablet,delayed 81 mg PO DAILY 02/18/22 02/18/22 History release atorvastatin 40 mg tablet 40 mg PO HS 02/18/22 02/18/22 History cholecalciferol (vitamin D3) 125 125 mcg PO DAILY 02/18/22 02/18/22 History mcg (5,000 unit) tablet (Vitamin D3) clonazepam 0.5 mg tablet 0.5 mg PO DAILY PRN Spasms 02/18/22 02/18/22 History docusate sodium 100 mg capsule 100 mg PO DAILY 02/18/22 02/18/22 History (Colace) ferrous sulfate 325 mg (65 mg 0 mg PO DAILY 02/18/22 02/18/22 History iron) tablet (iron) gabapentin 300 mg capsule 300 mg PO HS 02/18/22 02/18/22 History lactobacillus combination no.4 3 0 mmu cells PO DAILY 02/18/22 02/18/22 History billion cell capsule (Probiotic) loratadine 10 mg tablet 10 mg PO DAILY 02/18/22 02/18/22 History meloxicam 15 mg tablet 15 mg PO DAILY 02/18/22 02/18/22 History omeprazole 40 mg capsule,delayed 40 mg PO BID 02/18/22 02/18/22 History release ropinirole 1 mg tablet 2 mg PO HS 02/18/22 02/18/22 History vit C 250 mg-vit E 90 mg-zinc 40 2 tab PO DAILY 02/18/22 02/18/22 History mg-copper 1 [id number] capsule (PreserVision AREDS-2) Patient History Medical History Encounter for pre-operative examination Social History Smoking Status: Never smoker Hx Alcohol Use: No Hx Substance Use: No Preferred Language: Welsh Communication Ability: Effective Dairy Nutritionist Required: No Beliefs That Will Affect Care: None Current Living Situation: Spouse Feels Safe at Home: Yes Safety Concerns: Feels Safe At This Time Review of Systems Constitutional: no fever and no chills Respiratory: no cough and no dyspnea Cardiovascular: no chest pain Gastrointestinal: + hematemesis and + melena; no abdominal pain Integumentary: no problem reported Psychiatric: no problem reported Hematologic / Lymphatic: no unexplained weight loss Physical Exam Constitutional: well developed Neck: normal visual inspection Respiratory: normal respiratory effort Cardiovascular: Rate/Rhythm: regular rate Gastrointestinal (Abdomen): normal bowel sounds, soft, nontender, no hepatosplenomegaly Musculoskeletal: Head/Neck/Chest: normocephalic Psychiatric: Orientation: alert and oriented x 3 Results & Data ([facility]) Vital Signs (Past 12 Hours) Vital Signs Temp Pulse Pulse Resp BP Pulse Ox Pulse Ox 02/19/22 10:01 94 H 02/19/22 09:35 36.8 C 91 H 18 121/71 98 02/19/22 08:02 80 16 115/71 97 02/19/22 01:06 88 16 122/60 99 02/19/22 00:50 88 16 122/60 98 02/18/22 23:41 96 02/18/22 23:41 36.9 C 02/18/22 22:39 121/72 O2 Del Method O2 Del Method 02/19/22 10:01 02/19/22 09:35 Room Air 02/19/22 08:02 Room Air 02/19/22 01:06 02/19/22 00:50 02/18/22 23:41 Room Air 02/18/22 23:41 02/18/22 22:39 PG Care Time/CCT Total # of Minutes Spent Total Time Spent with Patient: Total time spent is greater than 50% in coordination of care (as documented) at patient's floor/unit and/or counseling patient: Coding Level of Care Code 35024 Initial Inpt Care Lvl 3 Diagnoses UGIB (upper gastrointestinal bleed) K92.2 Anemia D64.9 Anemia type: unspecified type (1) Anemia Anemia type: unspecified type Qualified Code(s): D64.9 - Anemia, unspecified
--- NOTE | 2022-02-19 10:42 | GI REPORT ---
Patient Name: Ginny Lal Procedure Date: 02/19/2022 10:09 AM Date of : 1955 Admit Type: Inpatient Age: 66 Gender: Female Attending MD: Jorge Patel DO Procedure: Upper GI endoscopy Providers: Jorge Patel DO Referring MD: Chele Perez Md Indications: Acute post hemorrhagic anemia, Melena Medicines: Monitored Anesthesia Care Complications: No immediate complications. Estimated Blood Loss: Estimated blood loss: none. Procedure: Pre-Anesthesia Assessment: - Prior to the procedure, a History and Physical was performed, and patient medications and allergies were reviewed. The patient's tolerance of previous anesthesia was also reviewed. The risks and benefits of the procedure and the sedation options and risks were discussed with the patient. All questions were answered, and informed consent was obtained. Prior Anticoagulants: The patient has taken no previous anticoagulant or antiplatelet agents except for aspirin. ASA Grade Assessment: II - A patient with mild systemic disease. After reviewing the risks and benefits, the patient was deemed in satisfactory condition to undergo the procedure. After obtaining informed consent, the endoscope was passed under direct vision. Throughout the procedure, the patient's blood pressure, pulse, and oxygen saturations were monitored continuously. The Endoscope was introduced through the mouth, and advanced to the third part of duodenum. The upper GI endoscopy was accomplished without difficulty. The patient tolerated the procedure well. Findings: The examined esophagus was normal. Three non-bleeding linear gastric ulcers with no stigmata of bleeding were found in the gastric antrum. The largest lesion was 6 mm in largest dimension. Biopsies were taken with a cold forceps for histology. A medium-sized hiatal hernia was present. The examined duodenum was normal. Impression: - Normal esophagus. - Non-bleeding gastric ulcers with no stigmata of bleeding. Biopsied. - Medium-sized hiatal hernia. - Normal examined duodenum. Recommendation: - Resume previous diet. - Continue present medications. - Await pathology results. - Return to primary care physician as previously scheduled. Jorge Patel DO 02/19/2022 10:41:39 AM This report has been signed electronically. Note Initiated On: 02/19/2022 10:09 AM Number of Addenda: 0 I attest to the content of the Intraoperative Record and orders documented therein, exceptions below {[id number]}
--- NOTE | 2022-02-19 11:13 | Anesthesiology Progress Note ---
Date of Service February 19, 2022 Anesthesia Post Procedure Vital Signs Vital Signs: Temp Pulse Pulse Resp BP BP Pulse Ox 02/19/22 11:02 85 16 114/72 98 02/19/22 10:48 87 16 107/63 98 02/19/22 10:36 88 18 93/60 L 98 02/19/22 10:01 94 H 02/19/22 09:35 36.8 C 91 H 18 121/71 98 02/19/22 08:02 80 16 115/71 97 02/19/22 01:06 88 16 122/60 99 02/19/22 00:50 88 16 122/60 98 02/18/22 23:41 02/18/22 23:41 36.9 C 02/18/22 22:39 121/72 02/18/22 21:58 91 H 16 126/74 98 02/18/22 19:48 89 21 123/79 97 02/18/22 18:20 85 99 H 99 02/18/22 18:20 84 18 129/77 99 02/18/22 18:20 97 02/18/22 17:20 36.6 C 99 H 20 124/66 97 Pulse Ox O2 Del Method O2 Del Method 02/19/22 11:02 Room Air 02/19/22 10:48 Room Air 02/19/22 10:36 Room Air 02/19/22 10:01 02/19/22 09:35 Room Air 02/19/22 08:02 Room Air 02/19/22 01:06 02/19/22 00:50 02/18/22 23:41 96 Room Air 02/18/22 23:41 02/18/22 22:39 02/18/22 21:58 Room Air 02/18/22 19:48 Room Air 02/18/22 18:20 Room Air 02/18/22 18:20 Room Air 02/18/22 18:20 Room Air 02/18/22 17:20 Room Air Pain Intensity Lower Back: Pain Intensity: 0 Transfer of Care Handoff Completed per policy Notes Mental Status: alert / awake / arousable and participated in evaluation Patient Amnestic to Procedure: Yes Nausea / Vomiting: adequately controlled Pain: adequately controlled Airway Patency, RR, SpO2: stable & adequate BP & HR: stable & adequate Hydration State: stable & adequate Anesthetic Complications: no major complications apparent and Pt Satisfied with anesthetic care
--- NOTE | 2022-02-19 11:17 | Hospitalist Progress Note ---
Date of Service February 19, 2022 Assessment & Plan (1) UGIB (upper gastrointestinal bleed): Plan: Acute Upper GI bleeding Likely due to PUD due to NSAIDs use Can not rule out H.Pylori infection --CT ABD:No bowel wall thickening or obstruction. Normal appendix. Cholelithiasis. No gallbladder wall thickening. Colonic diverticulosis. No evidence for acute diverticulitis. Large hiatus hernia. S/P EGD:Normal esophagus. Non-bleeding gastric ulcers with no stigmata of bleeding. Biopsied. Medium-sized hiatal hernia. Normal examined duodenum. Biopsy pending Hold Aspirin Avoid NSAIDs IV Protonix discontinued Continue Protonix 40mg BID Started on Carafate May need antibiotic course if Biopsy positive for H.Pylori Appreciate GI Input Needs follow up with GI upon discharge Plan to hold Aspirin for 2 weeks upon discharge as per GI Acute on chronic anemia Secondary to above Monitor H&H Transfuse PRBCs as needed Hyperlipidemia on statin H/O TIA Resume Aspirin in 2 weeks Statin DVT Px: SCDs Re: GI bleed Code Status Full code Admission and Anticipated Discharge Date Admission Date: February 18, 2022 Subjective Patient is seen and examined at bedside Had EGD earlier today Denies any bleeding issues today Discussed with GI today Also denies any chest pain, dyspnea, dizziness, nausea, abd pain Review of Systems Review of Systems: All systems reviewed & are unremarkable except as noted in Subjective Physical Exam Physical Exam: Physical Exam: Vitals signs as noted above General Appearance:Moderately built and nourished, no apparent distress Head: normocephalic, Atraumatic Eyes: normal inspection, EOMI Neck: supple, Trachea midline Respiratory/Chest: Normal breath sounds, CTA, No accessory muscle use Cardiovascular: S1, S2, No murmur Abdomen/GI:Soft, Non tender, Bowel sounds present Extremities/Musculoskeletal:normal inspection, 1+ B/L LE edema Neurologic/Psych:AAOX3, grossly no focal neurological deficits Skin: normal color, warm Results & Data Results & Data ([facility]) Vital Signs (Past 12 Hours) Vital Signs Temp Pulse Pulse Resp BP Pulse Ox Pulse Ox 02/19/22 11:02 85 16 114/72 98 02/19/22 10:48 87 16 107/63 98 02/19/22 10:36 88 18 93/60 L 98 02/19/22 10:01 94 H 02/19/22 09:35 36.8 C 91 H 18 121/71 98 02/19/22 08:02 80 16 115/71 97 02/19/22 01:06 88 16 122/60 99 02/19/22 00:50 88 16 122/60 98 02/18/22 23:41 96 02/18/22 23:41 36.9 C O2 Del Method O2 Del Method 02/19/22 11:02 Room Air 02/19/22 10:48 Room Air 02/19/22 10:36 Room Air 02/19/22 10:01 02/19/22 09:35 Room Air 02/19/22 08:02 Room Air 02/19/22 01:06 02/19/22 00:50 02/18/22 23:41 Room Air 02/18/22 23:41 Laboratory Results Short CBC 02/18/22 02/18/22 02/19/22 Range/Units 18:19 23:08 05:28 WBC 4.95 4.52 L (4.8-10.8) K/ul Hgb 9.5 L 9.7 L 8.9 L (12.0-16.0) g/dl Hct 31.8 L 32.5 L 29.1 L (34.1-44.9) % Plt Count 200 183 (130-400) K/uL BMP 02/18/22 02/19/22 18:19 05:28 Sodium 141 142 Potassium 3.7 4.1 Chloride 107 108 H Carbon Dioxide 26 28 BUN 21 17 Creatinine 0.61 0.67 Glucose 89 105 H Calcium 9.2 9.0 Liver Function 02/18/22 Range/Units 18:19 Total Bilirubin 0.3 (0.2-1.0) mg/dl AST 24 (13-39) U/L ALT 25 (7-52) U/L Alkaline Phosphatase 134 H (34-104) U/L Albumin 3.8 (3.4-5.0) gm/dl
[2022-02-19] MEDS ORDERED: SUCRALFATE 1 GM TAB PO SCH (11:30)
--- NOTE | 2022-02-19 11:55 | Communication Note ---
Date of Service: February 19, 2022 By CMS guidelines, a determination that the admission or continued stay is not medically necessary has been made by a member of the Utilization Review com rafia and a physician for this hospital stay. Therefore, a Code 44 will be completed and the inpatient admission will be changed to outpatient. DO HOLLAND Dickey Physician Member
--- NOTE | 2022-02-19 14:46 | Electrocardiogram Report ---
Test Reason : Blood Pressure : / mmHG Vent. Rate : 083 BPM Atrial Rate : 083 BPM P-R Int : 166 ms QRS Dur : 092 ms QT Int : 404 ms P-R-T Axes : 040 022 028 degrees QTc Int : 474 ms Normal sinus rhythm Possible Inferior infarct , age undetermined Poor R wave progression, consider anterior MD vs. lead placement vs. LVH Abnormal ECG No previous ECGs available Confirmed by Fausto Hamlin ([id number]) on 02/19/2022 2:45:50 PM Referred By: REFERRED SELF Confirmed By:Fausto Hamlin
--- NOTE | 2022-02-19 15:12 | Discharge Summary ---
Date of Service February 19, 2022 Admission HPI Per Admitting Provider History obtained from patient, family, and records. Medical history significant for TIA, hyperlipidemia, RLS, GERD, osteoarthritis/degenerative disc disease, chronic anemia (baseline hemoglobin of 11) Patient is a resident of [place], [place] who is currently in town visiting family. 1 month history of dizziness symptoms described as lightheadedness. Some nausea without abdominal pain complaints. 2 days ago, patient had coffee-ground emesis along with melena. No chest pain, no SOB, belly pain. No unusual weight loss. Patient admits to taking daily Excedrin intake for body aches and as needed ibuprofen. Last EGD was in December, by GI specialist from [place], [place]. Patient had scheduled stretching of her esophagus. She was told that she had small stomach ulcers and hiatal hernia as well. Amoxicillin course prescribed for a stomach bacterial infection. Medication later discontinued after an allergic reaction. Patient brought to ER by daughter for evaluation. IV PPI administered at the ER. Medical History as above Surgical History : Knee surgeries, shoulder surgery, BTL, carpal tunnel surgery, breast lumpectomy/biopsy Family History : Heart disease Personal/Social history : Non-smoker, no EtOH intake, retired groundhand Admission Exam Per Admitting Provider Physical Exam Physical Exam: GENERAL: Comfortable, obese, pleasant, no respiratory distress SKIN: Pallor , warm HEENT: Pale palpebral conjunctivae, no ptosis, moist buccal mucosa NECK : Supple, short neck, no tenderness CHEST : CTA, no tenderness HEART : RRR, no obvious murmurs ABDOMEN: Some distention, nontender EXTREMITIES : Minimal LE swelling, no LE tenderness, no other conspicuous deformities noted NEUROLOGIC : Coherent, no facial asymmetry, no other gross focality Principal Diagnosis Acute gastrointestinal bleeding Gastric Ulcers Acute blood loss Anemia Discharge Data Allergies Allergy/AdvReac Type Severity Reaction Status Date / Time amoxicillin Allergy ITCHY Verified 02/19/22 09:32 Consultations 02/18/22 21:22 Consult Gastroenterology Routine 02/18/22 21:25 ED Decision to Admit Stat 02/18/22 23:32 Consult Gastroenterology Routine Procedures Performed Operation Date: 02/19/22 17:15 Actual Procedures p EGD Biopsy Cytology - Jorge Martinez Case, DO Ordered Studies 02/18/22 17:37 CT Abd and Pelvis [CT abd pelvis IV con only] Stat CT head/brain wo con Stat Hospital Course (1) UGIB (upper gastrointestinal bleed): Acute Upper GI bleeding Likely due to PUD due to NSAIDs use Can not rule out H.Pylori infection --CT ABD:No bowel wall thickening or obstruction. Normal appendix. Cholelithiasis. No gallbladder wall thickening. Colonic diverticulosis. No evidence for acute diverticulitis. Large hiatus hernia. S/P EGD:Normal esophagus. Non-bleeding gastric ulcers with no stigmata of bleeding. Biopsied. Medium-sized hiatal hernia. Normal examined duodenum. Biopsy pending Hold Aspirin Avoid NSAIDs IV Protonix discontinued Continue Protonix 40mg BID Started on Carafate May need antibiotic course if Biopsy positive for H.Pylori Appreciate GI Input Needs follow up with GI upon discharge Plan to hold Aspirin for 2 weeks upon discharge as per GI Acute on chronic anemia Secondary to above Monitor H&H Transfuse PRBCs as needed Hyperlipidemia on statin H/O TIA Resume Aspirin in 2 weeks Statin DVT Px: SCDs Re: GI bleed Code Status Full code Total Time Total Time Spent Total Time Spent (In Minutes): 56 minutes Discharge Plan Discharge Items Patient Disposition: Home - Self-Care Reason For Visit: ANEMIA, GI BLEED Discharge Diagnosis: Acute gastrointestinal bleeding Gastric Ulcers Acute blood loss Anemia Activity: Per Instructions section Exercise/Sports: Wait until after follow-up appointment Non-emergency contact: Primary Care Provider and Permastone Mechanic Call non-emergency contact if: you have any medication questions, your symptoms worsen, your pain is concerning for you and you have a fever Follow-up/Referrals: PCP,NO [Primary Care Provider] - Diet: Heart Healthy Addtl Attending Provider Instructions: Follow up with your Primary care physician in 1 week as advised Follow-up with your spooling supervisor Dr. Patel in 1 to 2 weeks --- Gastric ulcer biopsy results are pending at the time of discharge. Follow- up with your spooling supervisor for results and further management ---Take Carafate before meals and at bedtime 4 times a day. Crush the tablet and mix with 15 mL of water prior to consumption. ---HOLD taking Aspirin for 2 weeks as recommended by your Permastone Mechanic. --Do not take group of medications belonging to NSAIDs group -can cause worsening of your Ulcer Bleeding List Of these medications includes but not limited to: Diclofenac Ibuprofen, Motrin, Advil Toradol,ketorolac Naproxen, Aleve, Naprosyn You can take Tylenol as needed for pain or fever When buying [id number] pain medications please consult with pharmacy if you are not sure regarding ingredients, as a lot of the pain medications have combination of NSAIDs and Tylenol. Seek immediate medical attention if your symptoms reoccur or worsen Please take all medications as instructed on discharge list below. Please call if you have any questions or problems. You can reach a [facility] hospitalist on duty at [facility] 24 hours a day by calling [phone] Pending Studies at Discharge: Yes Studies:: Gastric Ulcer Biopsy Stand-Alone Forms: [facility], Smoking Cessation Medications and DC Order Prescriptions: New sucralfate 1 gram Tablet 1 g PO ACHS Qty: 40 0RF pantoprazole [Protonix] 40 mg tablet,delayed release (DR/EC) 40 mg PO BID Qty: 60 1RF Continued atorvastatin 40 mg tablet 40 mg PO HS ropinirole 1 mg tablet 2 mg PO HS clonazepam 0.5 mg tablet 0.5 mg PO DAILY PRN (Reason: Spasms) aspirin 81 mg Tablet,Delayed Release (Dr/Ec) 81 mg PO DAILY ferrous sulfate [iron] 325 mg (65 mg iron) Tablet 0 mg PO DAILY docusate sodium [Colace] 100 mg Capsule 100 mg PO DAILY gabapentin 300 mg capsule 300 mg PO HS loratadine 10 mg Tablet 10 mg PO DAILY cholecalciferol (vitamin D3) [Vitamin D3] 125 mcg (5,000 unit) Tablet 125 mcg PO DAILY Probiotic 3 billion cell Capsule 0 mmu cells PO DAILY Rx Instructions: administer with a meal PreserVision AREDS-2 250-90-40-1 mg Capsule 2 tab PO DAILY Discontinued meloxicam 15 mg tablet 15 mg PO DAILY omeprazole 40 mg capsule,delayed release(DR/EC) 40 mg PO BID Discharge Orders: Discharge Order (Routine); Ordered 02/19/22 Ordered By: Chele Perez Admission Data Admit Date/Time: 02/18/22 22:52 Attending Provider: Chele Perez Admit Provider: Abdon Owens Primary Care Provider: PCP,NO Other Providers: Jorge Patel ; Abdon Owens Other Interventions: Discharge Summary Assessment (RN) Last Done: 02/19/22 11:43
[2022-02-19] MEDS ORDERED: ATORVASTATIN 40 MG TAB PO SCH (21:00)
[2022-02-19] MEDS ORDERED: rOPINIRole HCL 2 MG TABLET PO SCH (21:00)
[2022-02-19] MEDS ORDERED: GABAPENTIN 300 MG CAP PO SCH (21:00)
== END 2022-02-19 12:28 | disposition home or self-care (01) ==
LOC: ED 17:07 → INTOOBSV 22:52 → EDINP 22:52 → 2W 23:32